=== PATIENT | male | born 1930 | race Two or more races ===

== ENCOUNTER 2017-02-26 20:55 | Emergency (ER) | payer OTHER ==
[~2017-02-26] VITALS: Ht 177.8 cm; Wt 77.1 kg
[~2017-02-26 20:55] MED LIST: ASA81 MG; MICARDIS40 MG
[2017-02-26] MEDS ORDERED: CARDURA8 MG (21:11)
== END 2017-02-27 14:50 | disposition home or self-care (01) ==
LOC: ER 20:55
DX: K80.20 Calculus of gallbladder without cholecystitis without obstruction (principal)

== ENCOUNTER 2017-03-02 09:53 | Outpatient (CLI) | payer OTHER ==
[~2017-03-02 09:53] MED LIST changes: +CARDURA8 MG
== END 2017-03-02 11:27 | disposition home or self-care (01) ==
LOC: MRI 09:53
DX: K80.80 Other cholelithiasis without obstruction (principal)
CPT/HCPCS: 74181

== ENCOUNTER 2017-03-09 10:29 | Outpatient (CLI) | payer OTHER ==
[2017-03-09] MEDS ORDERED: COREG CR10 MG PO (14:00)
== END 2017-03-09 10:34 | disposition home or self-care (01) ==
LOC: RAD 10:29
DX: Z01.811 Encounter for preprocedural respiratory examination (principal); K80.10 Calculus of gallbladder with chronic cholecystitis without obstruction

== ENCOUNTER 2017-03-15 05:30 | Inpatient (IN) | payer OTHER ==
[~2017-03-15] VITALS: Ht 172.7 cm; Wt 5.0 kg
[~2017-03-15 05:30] MED LIST changes: +COREG CR10 MG PO
== END 2017-03-22 11:45 | disposition home or self-care (01) | DRG 410 ==
LOC: CIR.AMB 05:30 → O/R 13:41 → SURH 13:41 → CIR.AMB 17:59 → SURH 03-22 11:45
PROVIDERS: Surgery
PROC: 0FJ44ZZ Inspection of Gallbladder, Percutaneous Endoscopic Approach (ICD-10-PCS; 2017-03-15)
PROC: 0F9400Z Drainage of Gallbladder with Drainage Device, Open Approach (ICD-10-PCS; principal; 2017-03-15 07:00)
DX: K80.12 Calculus of gallbladder with acute and chronic cholecystitis without obstruction (principal); R41.0 Disorientation, unspecified; Z78.1 Physical restraint status

== ENCOUNTER 2017-05-06 11:21 | Outpatient (CLI) | payer OTHER | END 2017-05-06 11:33 | disposition home or self-care (01) | LOC: RX STUDY 11:21 | DX: K80.80 Other cholelithiasis without obstruction (principal) | CPT/HCPCS: 47531; Q9965 ==

== ENCOUNTER 2017-05-07 22:00 | Emergency (ER) | payer OTHER ==
[~2017-05-07] VITALS: Ht 170.2 cm; Wt 72.6 kg
[2017-05-08] MEDS ORDERED: INTESTINEX680 M1 PO (07:28)
== END 2017-05-08 08:14 | disposition home or self-care (01) ==
LOC: ER 22:00
DX: K52.9 Noninfective gastroenteritis and colitis, unspecified (principal); E86.0 Dehydration